=== PATIENT | female | born 1935 | race Caucasian/White ===

== ENCOUNTER 2023-12-21 13:41 | Inpatient (IN) | payer OTHER, MEDICARE ==
[2023-12-21 15:16] LABS: BASO % 0.5 % (0-2.0); EOS % 3.2 % (0-4.5); HEMATOCRIT 41.5 % (32.4-45.2); HEMOGLOBIN 14.2 GM/dL (10.7-15.3); LYMPH % 6.5 % (8-40); MCH 31.4 pg (25.7-33.7); MCHC 34.1 g/dl (32.0-36.0); MEAN CELL VOLUME 91.9 fl (80-96); MEAN PLT VOLUME 8.3 fl (7.5-11.1); MONO % 3.7 % (3.8-10.2); NEUT % 86.1 % (42.8-82.8); PLATELET COUNT 176 10^3/uL (134-434); RBC 4.52 M/mm3 (3.60-5.2); RDW 14.1 % (11.6-15.6); WHITE BLOOD COUNT 6.5 K/mm3 (4.0-10.0)
[2023-12-21 15:27] LABS: POTASSIUM 4.1 mmol/L (3.5-5.1)
[2023-12-21 15:32] LABS: CALCIUM 8.7 mg/dL (8.5-10.1)
[2023-12-21 15:33] LABS: ALBUMIN 3.2 g/dl (3.4-5.0); BLOOD UREA NITROGEN 22.4 mg/dL (7-18); MAGNESIUM 2.2 mg/dL (1.8-2.4)
[2023-12-21 15:36] LABS: BILIRUBIN,TOTAL 1.1 mg/dL (0.2-1); PHOSPHOROUS 3.4 mg/dL (2.5-4.9); TOT PROT 6.3 g/dl (6.4-8.2)
[2023-12-21] MEDS ORDERED: ONDANSETRON 4 MG/2 ML VIAL ONE (15:37)
[2023-12-21] MEDS ORDERED: FAMOTIDINE 20 MG/50 ML IVPB 20 MG/50 ML MG IVPB ONE (15:37)
[2023-12-21] MEDS: ONDANSETRON 4 MG/2 ML VIAL IVPUSH ONE (15:40)
[2023-12-21] MEDS: FAMOTIDINE 20 MG/50 ML IVPB 20 MG/50 ML MG IVPB ONE (15:45)
[2023-12-21] MEDS: SODIUM CHLORIDE 0.9% 500 ML INFUS.BAG IV ONE (15:45)
[2023-12-21] MEDS ORDERED: AZITHROMYCIN IVPB 500 MG/250 ML BAG IVPB ONE (17:57)
[2023-12-21] MEDS ORDERED: CEFTRIAXONE 1 GM/50 ML BAG ONE (17:57)
[2023-12-21] MEDS ORDERED: ONDANSETRON 4 MG/2 ML VIAL IVPUSH PRN (18:55)
[2023-12-21] MEDS ORDERED: ACETAMINOPHEN INJECTION 100 ML IVPB ONE (19:03)
[2023-12-21] MEDS: ACETAMINOPHEN 1000 MG/100 ML BAG IVPB ONE (19:06)
[2023-12-21] MEDS ORDERED: ACETAMINOPHEN 1000 MG/100 ML BAG IVPB PRN (19:12)
[2023-12-21] MEDS: AZITHROMYCIN IVPB 500 MG in DEXTROSE 5%-WATER - 250 ML IVPB ONE (19:27)
[2023-12-21] MEDS ORDERED: PANTOPRAZOLE SODIUM 40 MG VIAL ONE (19:29)
[2023-12-21] MEDS: PANTOPRAZOLE SODIUM 40 MG VIAL IVPUSH SCH (19:29)
[2023-12-21] MEDS: D5-1/2NS+10 MEQ KCL - 10 MEQ/1,000 ML INFUS.BAG IV SCH (19:37)
[2023-12-21] MEDS: HEPARIN NA (PORCINE) 5,000 UNITS/ML 1ML VIAL SQ SCH (21:26)
[2023-12-22 09:43] LABS: BASO % 0.5 % (0-2.0); EOS % 2.3 % (0-4.5); HEMATOCRIT 36.7 % (32.4-45.2); HEMOGLOBIN 12.6 GM/dL (10.7-15.3); LYMPH % 28.3 % (8-40); MCH 31.4 pg (25.7-33.7); MCHC 34.5 g/dl (32.0-36.0); MEAN PLT VOLUME 8.8 fl (7.5-11.1); MONO % 6.9 % (3.8-10.2); PLATELET COUNT 154 10^3/uL (134-434); RBC 4.03 M/mm3 (3.60-5.2); RDW 14.2 % (11.6-15.6); WHITE BLOOD COUNT 3.7 K/mm3 (4.0-10.0)
[2023-12-22 09:59] LABS: POTASSIUM 3.6 mmol/L (3.5-5.1)
[2023-12-22 10:08] LABS: CALCIUM 8.3 mg/dL (8.5-10.1)
[2023-12-22 10:09] LABS: BLOOD UREA NITROGEN 18.1 mg/dL (7-18)
[2023-12-22 10:11] LABS: CREATININE 0.9 mg/dL (0.55-1.3)
[2023-12-22] MEDS ORDERED: D5-1/2NS+10 MEQ KCL - 10 MEQ/1,000 ML INFUS.BAG IV SCH (10:11)
[2023-12-22] MEDS: APIXABAN 5 MG TABLET PO SCH (11:03)
[2023-12-22] MEDS: NEBIVOLOL 5 MG TABLET (FP) PO SCH (11:03)
[2023-12-22] MEDS: D5-1/2NS+10 MEQ KCL - 10 MEQ/1,000 ML INFUS.BAG IV SCH (11:08)
[2023-12-22] MEDS: MUPIROCIN 2% TOPICAL OINTMENT 22 GM TUBE TP SCH (11:57)
[2023-12-22] MEDS: NYSTATIN POWDER 100,000 UNITS/GM - 15 GM TOPICAL POWDER TP SCH (11:57)
[2023-12-22] MEDS: CEFTRIAXONE 1 GM in DEXTROSE 5%-WATER - 50 ML IVPB SCH (16:03)
[2023-12-23 07:51] LABS: BASO % 0.8 % (0-2.0); EOS % 4.6 % (0-4.5); HEMATOCRIT 36.8 % (32.4-45.2); HEMOGLOBIN 12.3 GM/dL (10.7-15.3); LYMPH % 40.2 % (8-40); MCH 30.9 pg (25.7-33.7); MCHC 33.5 g/dl (32.0-36.0); MEAN CELL VOLUME 92.2 fl (80-96); MEAN PLT VOLUME 8.8 fl (7.5-11.1); MONO % 9.7 % (3.8-10.2); NEUT % 44.7 % (42.8-82.8); PLATELET COUNT 142 10^3/uL (134-434); RBC 3.99 M/mm3 (3.60-5.2); RDW 14.1 % (11.6-15.6); WHITE BLOOD COUNT 3.6 K/mm3 (4.0-10.0)
[2023-12-23 08:03] LABS: POTASSIUM 3.5 mmol/L (3.5-5.1)
[2023-12-23 08:09] LABS: CALCIUM 8.2 mg/dL (8.5-10.1)
[2023-12-23 08:10] LABS: BLOOD UREA NITROGEN 10.2 mg/dL (7-18)
[2023-12-23 08:13] LABS: CREATININE 0.8 mg/dL (0.55-1.3)
[2023-12-23] MEDS: ESCITALOPRAM OXALATE 10 MG TABLET PO SCH (09:50)
[2023-12-23] MEDS: MEMANTINE HCL 10 MG TABLET (FP) PO SCH (09:50)
[2023-12-23] MEDS: PANTOPRAZOLE 40 MG TABLET PO SCH (09:50)
[2023-12-23] MEDS: D5-1/2NS+10 MEQ KCL - 10 MEQ/1,000 ML INFUS.BAG IV SCH (09:51)
[2023-12-23] MEDS: CHOLECALCIFEROL (VIT D3) 1,000 UNIT (25 MCG) TABLET PO SCH (09:51)
[2023-12-23] MEDS: ATORVASTATIN CA 20 MG TABLET (FP) PO SCH (21:10)
[2023-12-24 08:35] LABS: POTASSIUM 3.6 mmol/L (3.5-5.1)
[2023-12-24 08:41] LABS: CALCIUM 8.6 mg/dL (8.5-10.1)
[2023-12-24 08:42] LABS: BLOOD UREA NITROGEN 6.9 mg/dL (7-18)
[2023-12-24 08:45] LABS: CREATININE 0.7 mg/dL (0.55-1.3)
[2023-12-24 08:54] LABS: BASO % 0.5 % (0-2.0); EOS % 4.2 % (0-4.5); HEMATOCRIT 38.7 % (32.4-45.2); HEMOGLOBIN 13.4 GM/dL (10.7-15.3); LYMPH % 33.2 % (8-40); MCH 31.4 pg (25.7-33.7); MCHC 34.7 g/dl (32.0-36.0); MEAN CELL VOLUME 90.5 fl (80-96); MEAN PLT VOLUME 9.1 fl (7.5-11.1); MONO % 6.8 % (3.8-10.2); NEUT % 55.3 % (42.8-82.8); PLATELET COUNT 152 10^3/uL (134-434); RBC 4.28 M/mm3 (3.60-5.2); RDW 13.7 % (11.6-15.6); WHITE BLOOD COUNT 4.3 K/mm3 (4.0-10.0)
[2023-12-24] MEDS: ASCORBIC ACID 250 MG TABLET (FP) PO SCH (17:28)
[2023-12-24] MEDS: MULTIVITAMINS THER W-MINERALS COMBO TABLET (FP) PO SCH (17:28)
[2023-12-24 19:53] VITALS: BMI 36.6
[2023-12-25 08:24] LABS: POTASSIUM 3.5 mmol/L (3.5-5.1)
[2023-12-25 08:27] LABS: CALCIUM 8.8 mg/dL (8.5-10.1)
[2023-12-25 08:28] LABS: BLOOD UREA NITROGEN 10.5 mg/dL (7-18)
[2023-12-25 08:30] LABS: BASO % 0.7 % (0-2.0); EOS % 5.2 % (0-4.5); HEMATOCRIT 39.6 % (32.4-45.2); HEMOGLOBIN 13.3 GM/dL (10.7-15.3); LYMPH % 38.3 % (8-40); MCHC 33.7 g/dl (32.0-36.0); MEAN CELL VOLUME 91.9 fl (80-96); MEAN PLT VOLUME 8.7 fl (7.5-11.1); MONO % 7.9 % (3.8-10.2); NEUT % 47.9 % (42.8-82.8); PLATELET COUNT 155 10^3/uL (134-434); RDW 13.7 % (11.6-15.6); WHITE BLOOD COUNT 4.2 K/mm3 (4.0-10.0)
[2023-12-25 08:31] LABS: CREATININE 0.8 mg/dL (0.55-1.3)
[2023-12-25 21:55] VITALS: RESP 20
[2023-12-26] MEDS: CEFUROXIME AXETIL 500 MG TABLET PO SCH (12:57)
[2023-12-26 16:00] VITALS: BP 141/72; PULSE 69; TEMP 98.5
== END 2023-12-26 16:34 | DRG 195 ==
LOC: JER 13:41 → JERBED 18:20 → OBSVTOIN 18:50 → J6S 19:48
PROVIDERS: ADMIT Internal Medicine; ATTEND Internal Medicine
DX: J18.9 Pneumonia, unspecified organism (principal); J44.9 Chronic obstructive pulmonary disease, unspecified; I48.91 Unspecified atrial fibrillation; E78.5 Hyperlipidemia, unspecified; F03.90 Unspecified dementia, unspecified severity, without behavioral disturbance, psychotic disturbance, mood disturbance, and anxiety; I10 Essential (primary) hypertension; R19.7 Diarrhea, unspecified; R50.9 Fever, unspecified; R11.2 Nausea with vomiting, unspecified; E86.0 Dehydration; M62.81 Muscle weakness (generalized); E77.8 Other disorders of glycoprotein metabolism; L89.322 Pressure ulcer of left buttock, stage 2; E88.09 Other disorders of plasma-protein metabolism, not elsewhere classified; K52.89 Other specified noninfective gastroenteritis and colitis; E66.9 Obesity, unspecified; Z68.36 Body mass index [BMI] 36.0-36.9, adult
CPT/HCPCS: 0241U-QW; 36415; 71045-TC-FY; 80048; 80053; 83735; 84100; 85025; 87040; 87209; 93005; 93010; 97116-GP; 97162-GP; 99285-25; G0378; J0131; J1644

== ENCOUNTER 2024-04-01 08:31 | Inpatient (IN) | payer OTHER, MEDICARE ==
[2024-04-01] MEDS ORDERED: predniSONE 20 MG TABLET (UD) ONE (09:33)
[2024-04-01] MEDS ORDERED: ALBUTEROL SO4 2.5/IPRATROPIUM 0.5 INH SOL 3 ML VIAL.NEB. NEB ONE ×3 (09:33→16:04)
[2024-04-01 09:54] LABS: EOS % 5.2 % (0-4.5); HEMATOCRIT 36.7 % (32.4-45.2); HEMOGLOBIN 12.5 GM/dL (10.7-15.3); LYMPH % 29.1 % (8-40); MCH 30.7 pg (25.7-33.7); MCHC 34.1 g/dl (32.0-36.0); MEAN PLT VOLUME 8.8 fl (7.5-11.1); MONO % 8.3 % (3.8-10.2); NEUT % 56.4 % (42.8-82.8); PLATELET COUNT 205 10^3/uL (134-434); RBC 4.08 M/mm3 (3.60-5.2); RDW 14.5 % (11.6-15.6); WHITE BLOOD COUNT 5.8 K/mm3 (4.0-10.0)
[2024-04-01 10:01] LABS: INR 1.52 (0.83-1.09)
[2024-04-01 10:02] LABS: POTASSIUM 3.7 mmol/L (3.5-5.1)
[2024-04-01 10:04] LABS: ACTIVATED PTT 37.9 SECONDS (25.2-36.5)
[2024-04-01 10:05] LABS: ALBUMIN 2.9 g/dl (3.4-5.0); BLOOD UREA NITROGEN 16.5 mg/dL (7-18); CALCIUM 8.6 mg/dL (8.5-10.1)
[2024-04-01 10:09] LABS: BILIRUBIN,TOTAL 0.8 mg/dL (0.2-1); CREATININE 0.8 mg/dL (0.55-1.3); TOT PROT 5.8 g/dl (6.4-8.2)
[2024-04-01] MEDS: ALBUTEROL SO4 2.5/IPRATROPIUM 0.5 INH SOL 3 ML VIAL.NEB. NEB SCH (10:09)
[2024-04-01] MEDS: predniSONE 20 MG TABLET (UD) PO ONE (10:09)
[2024-04-01 10:11] LABS: N-TERMINAL BNP 2424.9 pg/ml (5-450)
[2024-04-01 12:03] LABS: POTASSIUM 3.4 mmol/L (3.5-5.1)
[2024-04-01 12:06] LABS: BLOOD UREA NITROGEN 16.8 mg/dL (7-18); CALCIUM 8.9 mg/dL (8.5-10.1); MAGNESIUM 2.3 mg/dL (1.8-2.4)
[2024-04-01 12:21] LABS: CREATININE 0.9 mg/dL (0.55-1.3)
[2024-04-01] MEDS ORDERED: FUROSEMIDE 40 MG/4 ML INJECTABLE VIAL ONE (13:26)
[2024-04-01 15:01] LABS: EPI CELLS 22 /uL (0-25.1); HYALINE CASTS 0 /uL (0-3.1); URINE APPEARANCE CLEAR; URINE BACTERIA 397 /uL (0-1359); URINE BILIRUBIN NEGATIVE (NEGATIVE); URINE COLOR YELLOW; URINE GLUCOSE (UA) NEGATIVE (NEGATIVE); URINE KETONE NEGATIVE (NEGATIVE); URINE LEUK ESTERASE TRACE (NEGATIVE); URINE NITRITE NEGATIVE (NEGATIVE); URINE PROTEIN NEGATIVE (NEGATIVE); URINE RBC 12 /uL (0-23.9); URINE UROBILINOGEN 0.2 mg/dL (0.2-1.0); URINE WBC 28 /uL (0-25.8)
[2024-04-01] MEDS ORDERED: PANTOPRAZOLE 40 MG TABLET PO ONE (15:07)
[2024-04-01] MEDS: PANTOPRAZOLE 40 MG TABLET PO SCH (15:12)
[2024-04-01 15:33] LABS: BASO % 0.1 % (0-2.0); EOS % 0.2 % (0-4.5); HEMATOCRIT 37.1 % (32.4-45.2); HEMOGLOBIN 12.6 GM/dL (10.7-15.3); LYMPH % 6.6 % (8-40); MEAN CELL VOLUME 91.1 fl (80-96); MEAN PLT VOLUME 8.4 fl (7.5-11.1); MONO % 2.3 % (3.8-10.2); NEUT % 90.8 % (42.8-82.8); PLATELET COUNT 193 10^3/uL (134-434); RBC 4.08 M/mm3 (3.60-5.2); RDW 14.4 % (11.6-15.6); WHITE BLOOD COUNT 6.2 K/mm3 (4.0-10.0)
[2024-04-01 15:51] LABS: POTASSIUM 3.7 mmol/L (3.5-5.1)
[2024-04-01 15:52] LABS: CALCIUM 8.5 mg/dL (8.5-10.1)
[2024-04-01 15:53] LABS: BLOOD UREA NITROGEN 14.3 mg/dL (7-18)
[2024-04-01] MEDS ORDERED: POTASSIUM CHLORIDE TABS 20 MEQ TABLET.ER (FP) PO ONE (15:57)
[2024-04-01] MEDS: POTASSIUM CHLORIDE TABS 20 MEQ TABLET.ER (FP) PO ONE (16:08)
[2024-04-01] MEDS: ALBUTEROL SO4 2.5/IPRATROPIUM 0.5 INH SOL 3 ML VIAL.NEB. NEB PRN (16:09)
[2024-04-01 16:18] LABS: ERYTHROCYTE SEDIMENTATION RATE 24 mm/hr (0-30)
[2024-04-01 19:00] VITALS: BMI 30.9
[2024-04-01] MEDS: ATORVASTATIN CA 20 MG TABLET (FP) PO SCH (22:30)
[2024-04-01] MEDS: MELATONIN 5 MG TABLETS PO PRN (22:30)
[2024-04-01] MEDS: APIXABAN 5 MG TABLET PO SCH (22:31)
[2024-04-01] MEDS: MEMANTINE HCL 10 MG TABLET (FP) PO SCH (22:31)
[2024-04-01] MEDS: RIVASTIGMINE 9.5 MG/24 HOURS TRANSDERMAL PATCH TD SCH (22:42)
[2024-04-01] MEDS: ACETAMINOPHEN 325 MG TABLET (FP) PO PRN (22:43)
[2024-04-02 09:19] LABS: BASO % 0.5 % (0-2.0); EOS % 0.7 % (0-4.5); HEMATOCRIT 34.9 % (32.4-45.2); HEMOGLOBIN 11.9 GM/dL (10.7-15.3); LYMPH % 18.7 % (8-40); MCH 31.2 pg (25.7-33.7); MCHC 34.2 g/dl (32.0-36.0); MEAN CELL VOLUME 91.1 fl (80-96); MEAN PLT VOLUME 8.8 fl (7.5-11.1); MONO % 8.7 % (3.8-10.2); NEUT % 71.4 % (42.8-82.8); PLATELET COUNT 194 10^3/uL (134-434); RBC 3.83 M/mm3 (3.60-5.2); RDW 14.4 % (11.6-15.6); WHITE BLOOD COUNT 6.2 K/mm3 (4.0-10.0)
[2024-04-02 09:35] LABS: POTASSIUM 4.4 mmol/L (3.5-5.1)
[2024-04-02 09:41] LABS: BLOOD UREA NITROGEN 15.7 mg/dL (7-18)
[2024-04-02 09:43] LABS: CALCIUM 9.3 mg/dL (8.5-10.1)
[2024-04-02 09:46] LABS: CREATININE 0.7 mg/dL (0.55-1.3)
[2024-04-02] MEDS ORDERED: FUROSEMIDE 40 MG/4 ML INJECTABLE VIAL IVPUSH SCH (10:00)
[2024-04-02] MEDS: NEBIVOLOL 5 MG TABLET (FP) PO SCH (10:30)
[2024-04-02] MEDS: ESCITALOPRAM OXALATE 10 MG TABLET PO SCH (10:30)
[2024-04-02] MEDS: CHOLECALCIFEROL (VIT D3) 1,000 UNIT (25 MCG) TABLET PO SCH (10:30)
[2024-04-02] MEDS: ALBUTEROL SO4 2.5/IPRATROPIUM 0.5 INH SOL 3 ML VIAL.NEB. NEB SCH (11:50)
[2024-04-02] MEDS: FUROSEMIDE 40 MG/4 ML INJECTABLE VIAL IVPUSH ONE (12:31)
[2024-04-02] MEDS: methylPREDNISolone NA SUCC 40 MG/1 ML VIAL IVPUSH SCH (12:32)
[2024-04-03 16:03] VITALS: RESP 18
[2024-04-05 15:10] VITALS: BP 134/61; PULSE 92; TEMP 98.2
== END 2024-04-05 16:00 | disposition home or self-care (01) | DRG 193 ==
LOC: JER 08:31 → JERBED 14:59 → OBSVTOIN 15:13 → J4W 18:07
PROVIDERS: ADMIT Internal Medicine; ATTEND Internal Medicine
DX: J12.1 Respiratory syncytial virus pneumonia (principal); I50.33 Acute on chronic diastolic (congestive) heart failure; J44.1 Chronic obstructive pulmonary disease with (acute) exacerbation; J45.909 Unspecified asthma, uncomplicated; F03.90 Unspecified dementia, unspecified severity, without behavioral disturbance, psychotic disturbance, mood disturbance, and anxiety; I48.91 Unspecified atrial fibrillation; M48.9 Spondylopathy, unspecified; I10 Essential (primary) hypertension; E78.5 Hyperlipidemia, unspecified; E87.6 Hypokalemia; E77.8 Other disorders of glycoprotein metabolism; I11.0 Hypertensive heart disease with heart failure; E88.09 Other disorders of plasma-protein metabolism, not elsewhere classified; M62.81 Muscle weakness (generalized); F41.8 Other specified anxiety disorders; G47.00 Insomnia, unspecified
CPT/HCPCS: 0241U-QW; 36415; 71045-TC-FY; 71250-TC; 80048; 80053; 81003; 83735; 83880; 84484; 85025; 85379; 85610; 85651; 85730; 86140; 87086; 93005; 93010; 93306-TC; 94640; 97116-GP; 97162-GP; 99285-25; G0378

== ENCOUNTER 2024-05-13 08:36 | Inpatient (IN) | payer OTHER, MEDICARE ==
[2024-05-13 10:08] LABS: BASO % 0.4 % (0-2.0); EOS % 0.1 % (0-4.5); HEMATOCRIT 41.3 % (32.4-45.2); HEMOGLOBIN 14.1 GM/dL (10.7-15.3); LYMPH % 7.4 % (8-40); MCH 30.9 pg (25.7-33.7); MCHC 34.2 g/dl (32.0-36.0); MEAN CELL VOLUME 90.4 fl (80-96); MEAN PLT VOLUME 8.6 fl (7.5-11.1); MONO % 6.2 % (3.8-10.2); NEUT % 85.9 % (42.8-82.8); PLATELET COUNT 178 10^3/uL (134-434); RBC 4.57 M/mm3 (3.60-5.2); RDW 14.5 % (11.6-15.6)
[2024-05-13 10:19] LABS: INR 1.43 (0.83-1.09)
[2024-05-13 10:22] LABS: ACTIVATED PTT 33.2 SECONDS (25.2-36.5)
[2024-05-13 10:26] LABS: URINE APPEARANCE CLEAR; URINE BILIRUBIN NEGATIVE (NEGATIVE); URINE COLOR YELLOW; URINE GLUCOSE (UA) NEGATIVE (NEGATIVE); URINE KETONE NEGATIVE (NEGATIVE); URINE LEUK ESTERASE NEGATIVE (NEGATIVE); URINE NITRITE NEGATIVE (NEGATIVE); URINE PROTEIN NEGATIVE (NEGATIVE)
[2024-05-13 10:38] LABS: POTASSIUM 4.5 mmol/L (3.5-5.1)
[2024-05-13 10:40] LABS: ALBUMIN 3.1 g/dl (3.4-5.0); CALCIUM 8.9 mg/dL (8.5-10.1)
[2024-05-13 10:45] LABS: BILIRUBIN,TOTAL 1.2 mg/dL (0.2-1); TOT PROT 6.4 g/dl (6.4-8.2)
[2024-05-13] MEDS ORDERED: ACETAMINOPHEN INJECTION 100 ML ONE (10:56)
[2024-05-13] MEDS: ACETAMINOPHEN 1000 MG/100 ML BAG IVPB ONE (11:00)
[2024-05-13] MEDS ORDERED: ALBUTEROL SO4 2.5/IPRATROPIUM 0.5 INH SOL 3 ML VIAL.NEB. NEB PRN (18:01)
[2024-05-13] MEDS ORDERED: PANTOPRAZOLE 40 MG TABLET PO ONE (18:11)
[2024-05-13] MEDS: PANTOPRAZOLE 40 MG TABLET PO SCH (18:16)
[2024-05-13] MEDS ORDERED: VANCOMYCIN 1 GRAM (PRE-DOCKED) 1,000 MG/250 ML BAG IVPB ONE (21:02)
[2024-05-13] MEDS ORDERED: FUROSEMIDE 40 MG/4 ML INJECTABLE VIAL ONE (21:15)
[2024-05-13] MEDS ORDERED: FUROSEMIDE 20 MG TABLET (FP) ONE (21:17)
[2024-05-13] MEDS: RIVASTIGMINE 9.5 MG/24 HOURS TRANSDERMAL PATCH TD SCH (21:22)
[2024-05-13] MEDS: VANCOMYCIN 1 GRAM (PRE-DOCKED) 1,000 MG/250 ML BAG IVPB ONE (21:22)
[2024-05-13] MEDS: FUROSEMIDE 20 MG TABLET (FP) PO SCH (21:22)
[2024-05-13] MEDS: MEMANTINE HCL 10 MG TABLET (FP) PO SCH (23:42)
[2024-05-13] MEDS: APIXABAN 5 MG TABLET PO SCH (23:42)
[2024-05-13] MEDS: ATORVASTATIN CA 20 MG TABLET (FP) PO SCH (23:42)
[2024-05-14 04:24] VITALS: BMI 33.9
[2024-05-14] MEDS: ESCITALOPRAM OXALATE 10 MG TABLET PO SCH (09:03)
[2024-05-14] MEDS: CHOLECALCIFEROL (VIT D3) 1,000 UNIT (25 MCG) TABLET PO SCH (09:04)
[2024-05-14] MEDS: NEBIVOLOL 5 MG TABLET (FP) PO SCH (09:06)
[2024-05-14 11:28] LABS: BASO % 0.6 % (0-2.0); EOS % 1.2 % (0-4.5); HEMATOCRIT 37.4 % (32.4-45.2); LYMPH % 16.3 % (8-40); MCH 31.3 pg (25.7-33.7); MCHC 34.7 g/dl (32.0-36.0); MEAN CELL VOLUME 90.2 fl (80-96); MEAN PLT VOLUME 9.3 fl (7.5-11.1); MONO % 6.4 % (3.8-10.2); NEUT % 75.5 % (42.8-82.8); PLATELET COUNT 164 10^3/uL (134-434); RBC 4.14 M/mm3 (3.60-5.2); RDW 14.9 % (11.6-15.6); WHITE BLOOD COUNT 9.4 K/mm3 (4.0-10.0)
[2024-05-14] MEDS: CEFTRIAXONE 2 GM in DEXTROSE 5%-WATER 100 ML IVPB SCH (12:20)
[2024-05-14] MEDS: ACETAMINOPHEN 325 MG TABLET (FP) PO PRN (21:32)
[2024-05-15 10:30] LABS: BASO % 0.6 % (0-2.0); EOS % 2.6 % (0-4.5); HEMATOCRIT 37.4 % (32.4-45.2); HEMOGLOBIN 12.4 GM/dL (10.7-15.3); LYMPH % 20.6 % (8-40); MCH 30.3 pg (25.7-33.7); MCHC 33.2 g/dl (32.0-36.0); MEAN CELL VOLUME 91.2 fl (80-96); MEAN PLT VOLUME 9.3 fl (7.5-11.1); MONO % 6.4 % (3.8-10.2); NEUT % 69.8 % (42.8-82.8); PLATELET COUNT 151 10^3/uL (134-434); RDW 14.6 % (11.6-15.6); WHITE BLOOD COUNT 7.9 K/mm3 (4.0-10.0)
[2024-05-16 09:37] LABS: BASO % 0.5 % (0-2.0); EOS % 3.2 % (0-4.5); HEMATOCRIT 36.5 % (32.4-45.2); HEMOGLOBIN 12.7 GM/dL (10.7-15.3); LYMPH % 25.1 % (8-40); MCHC 34.9 g/dl (32.0-36.0); MEAN CELL VOLUME 88.9 fl (80-96); MEAN PLT VOLUME 8.8 fl (7.5-11.1); MONO % 7.4 % (3.8-10.2); NEUT % 63.8 % (42.8-82.8); PLATELET COUNT 168 10^3/uL (134-434); RBC 4.11 M/mm3 (3.60-5.2); RDW 14.4 % (11.6-15.6); WHITE BLOOD COUNT 5.9 K/mm3 (4.0-10.0)
[2024-05-17] MEDS: CEPHALEXIN MONOHYDRATE 500 MG CAPSULE (UD) PO SCH (21:21)
[2024-05-18 08:42] VITALS: RESP 18
[2024-05-18 12:24] LABS: BASO % 0.8 % (0-2.0); EOS % 2.6 % (0-4.5); HEMATOCRIT 39.3 % (32.4-45.2); HEMOGLOBIN 13.1 GM/dL (10.7-15.3); LYMPH % 23.9 % (8-40); MCH 30.3 pg (25.7-33.7); MCHC 33.2 g/dl (32.0-36.0); MEAN CELL VOLUME 91.1 fl (80-96); MEAN PLT VOLUME 9.1 fl (7.5-11.1); MONO % 8.6 % (3.8-10.2); NEUT % 64.1 % (42.8-82.8); PLATELET COUNT 204 10^3/uL (134-434); RBC 4.31 M/mm3 (3.60-5.2); RDW 14.7 % (11.6-15.6); WHITE BLOOD COUNT 7.3 K/mm3 (4.0-10.0)
[2024-05-18] MEDS: MELATONIN 5 MG TABLETS PO PRN (21:47)
[2024-05-19 06:05] VITALS: BP 136/71; PULSE 83; TEMP 98.8
== END 2024-05-19 09:55 | disposition home or self-care (01) | DRG 603 ==
LOC: JER 08:36 → JERBED 17:58 → J6S 21:56
PROVIDERS: ADMIT Internal Medicine; ATTEND Internal Medicine
DX: L03.115 Cellulitis of right lower limb (principal); I48.91 Unspecified atrial fibrillation; J44.9 Chronic obstructive pulmonary disease, unspecified; M48.9 Spondylopathy, unspecified; I77.1 Stricture of artery; J45.909 Unspecified asthma, uncomplicated; E78.5 Hyperlipidemia, unspecified; I11.0 Hypertensive heart disease with heart failure; F31.9 Bipolar disorder, unspecified; I50.9 Heart failure, unspecified; G47.00 Insomnia, unspecified; I70.293 Other atherosclerosis of native arteries of extremities, bilateral legs; F03.90 Unspecified dementia, unspecified severity, without behavioral disturbance, psychotic disturbance, mood disturbance, and anxiety; R26.81 Unsteadiness on feet; M62.81 Muscle weakness (generalized); D72.9 Disorder of white blood cells, unspecified; W19.XXXA Unspecified fall, initial encounter; Y92.099 Unspecified place in other non-institutional residence as the place of occurrence of the external cause; Y99.9 Unspecified external cause status; Z88.0 Allergy status to penicillin
CPT/HCPCS: 0241U-QW; 36415; 71045-TC-FY; 72170-TC-FY; 73706-TC-RT; 74177-TC; 76705-TC; 76882-TC-RT; 80053; 81003; 83605; 84484; 85025; 85610; 85651; 85730; 86140; 87086; 93005; 93010; 93971-TC; 97116-GP; 97162-GP; 99285-25; J0131

== ENCOUNTER 2025-02-07 15:30 | Inpatient (IN) | payer OTHER, MEDICARE ==
[2025-02-07 16:49] LABS: ABSOLUTE IMMATURE GRANULOCYTES 0.09 x10^3/uL (0.0-0.031); BASOPHILS # 0.02 x10^3/uL (0.01-0.08); EOSINOPHIL % 0.0 % (0.7-5.8); EOSINOPHILS # 0.00 x10^3/uL (0.04-0.36); MCHC 32.8 g/dl (32.2-35.5); MEAN CELL VOLUME 95.7 fl (79.4-94.8); MEAN PLT VOLUME 11.2 fl (9.4-12.3); MONOCYTE # 0.58 x10^3/uL (0.24-0.86); MONOCYTE % 6.7 % (4.7-12.5); RDW 12.9 % (12.5-17.0)
[2025-02-07 16:50] LABS: BG HCT 42.0 % (32.4-45.2); VENOUS BASE EXCESS -1.8 mmol/L (-2-2); VENOUS O2 SATURATION 90.4 % (70-80); VENOUS PCO2 32.9 mmHg (38-52); VENOUS PH 7.434 (7.310-7.410)
[2025-02-07] MEDS: LACTATED RINGERS SOLUTION 1000 ML INFUS.BAG IV ONE (17:00)
[2025-02-07 17:11] LABS: CO2 23.0 mmol/L (21-32); GLUCOSE,RANDOM 190.0 mg/dL (74-106)
[2025-02-07 17:14] LABS: CREATININE 1.1 mg/dL (0.55-1.3); SGOT/AST 40.0 U/L (15-37); SGPT/ALT 22.0 U/L (13-61)
[2025-02-07 17:15] LABS: TOT PROT 5.5 g/dl (6.4-8.2)
[2025-02-07 17:17] LABS: ALK PHOS 94.0 U/L (45-117)
[2025-02-07 17:18] LABS: N-TERMINAL BNP 9492.7 pg/ml (5-450)
[2025-02-07] MEDS ORDERED: FUROSEMIDE 40 MG/4 ML INJECTABLE VIAL ONE (18:11)
[2025-02-07] MEDS ORDERED: KCL 10 MEQ IVPB 10 MEQ/100 ML INFUS.BAG IVPB ONE (18:13)
[2025-02-07] MEDS: FUROSEMIDE 40 MG/4 ML INJECTABLE VIAL IVPUSH ONE (18:21)
[2025-02-07] MEDS: KCL 10 MEQ IVPB 10 MEQ/100 ML INFUS.BAG IVPB SCH (18:41)
[2025-02-07] MEDS: PANTOPRAZOLE 40 MG TABLET PO SCH (23:07)
[2025-02-07] MEDS: MEMANTINE HCL 10 MG TABLET (FP) PO SCH (23:07)
[2025-02-07] MEDS: MELATONIN 5 MG TABLETS PO SCH (23:08)
[2025-02-07] MEDS: APIXABAN 5 MG TABLET PO SCH (23:08)
[2025-02-08] MEDS: guaiFENesin/CODEINE 5 ML UNIT-DOSE CUPS PO PRN (04:28)
[2025-02-08] MEDS: INSULIN ASPART SLIDING SCALE (NOVOLOG) 1 VIAL SQ SCH (06:03)
[2025-02-08 09:00] LABS: MCHC 32.0 g/dl (32.2-35.5); MEAN CELL VOLUME 96.9 fl (79.4-94.8); MEAN PLT VOLUME 11.2 fl (9.4-12.3); RDW 12.7 % (12.5-17.0)
[2025-02-08 09:42] LABS: CO2 25.0 mmol/L (21-32); GLUCOSE,RANDOM 92.0 mg/dL (74-106)
[2025-02-08 09:45] LABS: CREATININE 0.8 mg/dL (0.55-1.3)
[2025-02-08] MEDS ORDERED: FUROSEMIDE 40 MG/4 ML INJECTABLE VIAL IVPUSH SCH (10:00)
[2025-02-08] MEDS: RIVASTIGMINE 9.5 MG/24 HOURS TRANSDERMAL PATCH TD SCH (10:24)
[2025-02-08] MEDS: CHOLECALCIFEROL (VIT D3) 1,000 UNIT (25 MCG) TABLET PO SCH (10:25)
[2025-02-08] MEDS: ESCITALOPRAM OXALATE 10 MG TABLET PO SCH (10:25)
[2025-02-08] MEDS: FUROSEMIDE 40 MG/4 ML INJECTABLE VIAL IVPUSH SCH (10:25)
[2025-02-08] MEDS: NEBIVOLOL 5 MG TABLET (FP) PO SCH (10:26)
[2025-02-08 14:17] VITALS: BMI 28.8
[2025-02-08] MEDS: AMINO ACIDS/PROTEIN HYDROLYS 30 ML LIQUID.PKT PO SCH (17:37)
[2025-02-09] MEDS: ACETAMINOPHEN 325 MG TABLET (FP) PO PRN (04:45)
[2025-02-09] MEDS: MULTIVITAMINS THER W-MINERALS COMBO TABLET (FP) PO SCH (09:48)
[2025-02-10 09:53] LABS: MCHC 32.0 g/dl (32.2-35.5); MEAN CELL VOLUME 98.0 fl (79.4-94.8); MEAN PLT VOLUME 11.7 fl (9.4-12.3); RDW 12.8 % (12.5-17.0)
[2025-02-10 10:11] LABS: CO2 29.0 mmol/L (21-32); GLUCOSE,RANDOM 131.0 mg/dL (74-106)
[2025-02-10 10:15] LABS: CREATININE 0.6 mg/dL (0.55-1.3)
[2025-02-11] MEDS: FUROSEMIDE 40 MG TABLET (FP) PO SCH (08:59)
[2025-02-11 09:46] LABS: MCHC 32.3 g/dl (32.2-35.5); MEAN CELL VOLUME 98.0 fl (79.4-94.8); MEAN PLT VOLUME 11.4 fl (9.4-12.3); RDW 13.1 % (12.5-17.0)
[2025-02-11 10:06] LABS: CO2 31.0 mmol/L (21-32); GLUCOSE,RANDOM 100.0 mg/dL (74-106)
[2025-02-11 10:10] LABS: CREATININE 0.7 mg/dL (0.55-1.3)
[2025-02-12 09:13] LABS: ABSOLUTE IMMATURE GRANULOCYTES 0.18 x10^3/uL (0.0-0.031); BASOPHILS # 0.03 x10^3/uL (0.01-0.08); EOSINOPHIL % 0.8 % (0.7-5.8); EOSINOPHILS # 0.07 x10^3/uL (0.04-0.36); MCHC 31.0 g/dl (32.2-35.5); MEAN CELL VOLUME 101.4 fl (79.4-94.8); MEAN PLT VOLUME 11.3 fl (9.4-12.3); MONOCYTE # 0.51 x10^3/uL (0.24-0.86); MONOCYTE % 6.1 % (4.7-12.5); RDW 13.2 % (12.5-17.0)
[2025-02-12 09:49] LABS: CO2 32.0 mmol/L (21-32); GLUCOSE,RANDOM 127.0 mg/dL (74-106)
[2025-02-12 09:52] LABS: CREATININE 0.9 mg/dL (0.55-1.3)
[2025-02-13] MEDS ORDERED: guaiFENesin/CODEINE 5 ML UNIT-DOSE CUPS PO PRN (13:24)
[2025-02-13 14:40] VITALS: BP 113/50; PULSE 95; RESP 19; TEMP 101.8
== END 2025-02-13 15:31 | DRG 291 ==
LOC: JER 15:30 → JERBED 18:07 → J5S 22:47
PROVIDERS: ADMIT Internal Medicine; ATTEND Internal Medicine
DX: I11.0 Hypertensive heart disease with heart failure (principal); I50.33 Acute on chronic diastolic (congestive) heart failure; R53.2 Functional quadriplegia; F03.90 Unspecified dementia, unspecified severity, without behavioral disturbance, psychotic disturbance, mood disturbance, and anxiety; E11.9 Type 2 diabetes mellitus without complications; E78.5 Hyperlipidemia, unspecified; L89.150 Pressure ulcer of sacral region, unstageable; F41.8 Other specified anxiety disorders; J44.9 Chronic obstructive pulmonary disease, unspecified; I48.91 Unspecified atrial fibrillation; M62.81 Muscle weakness (generalized); D69.6 Thrombocytopenia, unspecified; E77.8 Other disorders of glycoprotein metabolism; E88.09 Other disorders of plasma-protein metabolism, not elsewhere classified; G47.00 Insomnia, unspecified; Z86.73 Personal history of transient ischemic attack (TIA), and cerebral infarction without residual deficits
CPT/HCPCS: 36415; 71045-TC-FY; 80048; 80053; 82803; 82962; 83036; 83605; 83735; 83880; 84484; 85025; 85379; 87040; 87637-QW; 93005; 93010; 94761; 97161-GP; 99285-25